=== PATIENT | female | born 1955 | race Caucasian/White ===

== ENCOUNTER → 2016-06-07 | Outpatient (CLI) | payer OTHER ==
[~2016-06-07] MED LIST: ALPRAZOLAM; DESYREL150 M1 PO; EFFEXOR PO; GABAPENTIN100 M1 PO; LORTAB 10/500 T1 TAB PO; MORGIDOX100 MG PO; NAPROSYN500 MG PO; NEURONTIN PO; NORCO 10-325 TA1 TAB PO; ORUDIS75 M1 PO; PRILOSEC40 MG PO; TRAZODONE HCL100 MG PO; TRAZODONE PO; XANAX0.5 MG PO; ZOLOFT; ZOLOFT PO; ZOLOFT50 MG PO; [UNRECOGNIZED DRUG - OTHER] PO
--- NOTE | ~2016-06-07 | CR63 ---
[facility] A Service of [facility] & [facility] RADIOLOGY TEXT RESULTS PATIENT: JOSÉ ANTONIO HUERTA LOCATION: [facility] : 57 UNIT #: [id number] AGE: [address]: Stephanie Jansen SEX: F ORDER DR: [id number] [address] [address] [id number] O MR#: [id number] Acc #: [id number] NAME: JOSÉ ANTONIO HUERTA : 1955 SEX: F STUDY DATE/TIME: 06/07/2016 9:47 UNIT: [facility] ROOM: STUDY DESCRIPTION: CR Chest 2 View Attending Physician: Stephanie Jansen A.P.R.N. Referring Physician: Stephanie Jansen A.P.R.N. Ordering Physician: Stephanie Jansen A.P.R.N. Primary Care Physician: Stephanie Jansen A.P.R.N. MEDICAL IMAGING REPORT This report is preliminary unless electronic signature is present. EXAM Chest PA and lateral 06/07/2016. COMPARISON Study of 01/26/2016. HISTORY Cough and congestion for 2 weeks. FINDINGS PA and lateral views are obtained. The cardiovascular configuration of the chest is normal and the lungs are clear. CONCLUSION 1. No active disease. Dictated by... Harpreet Mcghee M.D. THIS IS AN ELECTRONICALLY VERIFIED REPORT Harpreet Mcghee M.D. at 06/10/2016 7:20 AM TANNA/erich TD: 06/07/2016 20:25 JOB #: [id number] MEDICAL IMAGING REPORT Page 1 of 1
--- NOTE | ~2016-06-07 | CR242 ---
[facility] A Service of [facility] & [facility] & [facility] RADIOLOGY TEXT RESULTS PATIENT: JOSÉ ANTONIO HUERTA LOCATION: [facility] : 57 UNIT #: [id number] AGE: [address]: Stephanie Jansen SEX: F ORDER DR: [id number] [address] [address] [id number] O MR#: [id number] Acc #: [id number] NAME: JOSÉ ANTONIO HUERTA : 1955 SEX: F STUDY DATE/TIME: 06/07/2016 9:47 UNIT: [facility] ROOM: STUDY DESCRIPTION: CR Thoracic Spine 2 Views Attending Physician: Stephanie Jansen A.P.R.N. Referring Physician: Stephanie Jansen A.P.R.N. Ordering Physician: Stephanie Jansen A.P.R.N. Primary Care Physician: Stephanie Jansen A.P.R.N. MEDICAL IMAGING REPORT This report is preliminary unless electronic signature is present. EXAM Thoracic series 06/07/2016 INDICATIONS 61-year-old female with low back pain symptoms for at least 8 years. Degenerative disc disease. TECHNIQUE 2 views of the thoracic spine were performed. Correlation is made with chest x-ray 01/26/2016 FINDINGS Cervicothoracic junction not visualized or assessed. Remainder of the thoracic spine demonstrates no evidence of malalignment or acute or chronic fracture. There is mild degenerative disc disease in the mid thoracic levels. Mild lumbar levoscoliosis. Postop changes of cholecystectomy. IMPRESSION 1. Mild degenerative disc disease in the mid thoracic spine. Marginal osteophyte formation also present in the mid to lower thoracic levels to a mild degree. Otherwise negative Dictated by... Gonzalo Weathers M.D. THIS IS AN ELECTRONICALLY VERIFIED REPORT Gonzalo Weathers M.D. at 06/08/2016 10:38 AM GENEVA/lexis TD: 06/08/2016 04:44 JOB #: [id number] [facility] A Service of [facility] & [facility] & [facility] RADIOLOGY TEXT RESULTS PATIENT: JOSÉ ANTONIO HUERTA LOCATION: [facility] : 57 UNIT #: [id number] AGE: [address]: Stephanie Jansen SEX: F ORDER DR: MEDICAL IMAGING REPORT Page 1 of 1
--- NOTE | ~2016-06-07 | CR181 ---
[facility] A Service of [facility] & [facility] RADIOLOGY TEXT RESULTS PATIENT: JOSÉ ANTONIO HUERTA LOCATION: [facility] : 57 UNIT #: [id number] AGE: [address]: Stephanie Jansen SEX: F ORDER DR: [id number] [address] [address] [id number] O MR#: [id number] Acc #: [id number] NAME: JOSÉ ANTONIO HUERTA : 1955 SEX: F STUDY DATE/TIME: 06/07/2016 9:47 UNIT: [facility] ROOM: STUDY DESCRIPTION: CR Lumbar Spine 2 or 3 Views Attending Physician: Stephanie Jansen A.P.R.N. Referring Physician: Stephanie Jansen A.P.R.N. Ordering Physician: Stephanie Jansen A.P.R.N. Primary Care Physician: Stephanie Jansen A.P.R.N. MEDICAL IMAGING REPORT This report is preliminary unless electronic signature is present. EXAM Lumbar series 06/07/2016 INDICATIONS 61-year-old female with low back pain symptoms in the low back for at least 8 years. Degenerative disc disease. TECHNIQUE 2 views of the lumbar spine were performed. Comparison is made with abdomen and pelvis CT 05/16/2010 FINDINGS Postop changes of cholecystectomy are present. There is mild mid lumbar levoscoliosis. Vertebral body heights are maintained. There is minimal retrograde listhesis of L3 on L4 and L2 on L3 grade 1 in degree. There is degenerative disc disease at all lumbar levels with relative sparing at L1-2. There is spurring of L2, L3 and L4 and to a lesser extent L5. There is moderate facet arthropathy at L4-5 and L5-S1. IMPRESSION 1. Moderate degenerative change of the lumbar spine primarily related to degenerative disc disease and to a lesser extent facet arthropathy. There is vertebral body spurring as described. Mild levoscoliosis. Dictated by... Gonzalo Weathers M.D. THIS IS AN ELECTRONICALLY VERIFIED REPORT Gonzalo Weathers M.D. at 06/08/2016 10:38 AM GENEVA/lexis TD: 06/08/2016 04:25 [facility] A Service of [facility] & [facility] RADIOLOGY TEXT RESULTS PATIENT: JOSÉ ANTONIO HUERTA LOCATION: [facility] : 57 UNIT #: [id number] AGE: [address]: Stephanie Jansen SEX: F ORDER DR: ROMAN #: [id number] MEDICAL IMAGING REPORT Page 1 of 1
== END | disposition home or self-care (01) ==
LOC: SRAD 09:38
DX: M54.5 Low back pain (principal); R05 Cough; M47.816 Spondylosis without myelopathy or radiculopathy, lumbar region; M51.36 Other intervertebral disc degeneration, lumbar region; M41.9 Scoliosis, unspecified; M46.06 Spinal enthesopathy, lumbar region; M51.34 Other intervertebral disc degeneration, thoracic region; M25.78 Osteophyte, vertebrae
CPT/HCPCS: 71020; 72070; 72100

== ENCOUNTER → 2016-10-11 | Outpatient (CLI) | payer OTHER ==
--- NOTE | ~2016-10-11 | CR58 ---
[facility] A Service of [facility] RADIOLOGY TEXT RESULTS PATIENT: JOSÉ ANTONIO HUERTA LOCATION: [facility] : 57 UNIT #: [id number] AGE: [address]: Stephanie Jansen SEX: F ORDER DR: [id number] [place] [id number] O MR#: [id number] Acc #: [id number] NAME: JOSÉ ANTONIO HUERTA. : 1955 SEX: F STUDY DATE/TIME: 10/11/2016 10:52 UNIT: [facility] ROOM: STUDY DESCRIPTION: CR Cervical Spine 2 or 3 Views Attending Physician: Stephanie Jansen A.P.R.N. Referring Physician: Stephanie Jansen A.P.R.N. Ordering Physician: Stephanie Jansen A.P.R.N. Primary Care Physician: Stephanie Jansen A.P.R.N. MEDICAL IMAGING REPORT This report is preliminary unless electronic signature is present. EXAM Cervical spine series HISTORY Arm and neck pain started about a month ago. No injury. TECHNIQUE AP, lateral and odontoid views of the cervical spine reviewed. 4 films submitted. COMPARISON STUDIES No comparison. FINDINGS There is visualization of cervical vertebral bodies from C1 to top of T1. Sagittal alignment is normal. Prevertebral soft tissues are normal. There is mild loss of intervertebral disc height at C5-C6 but there is no acute fracture or bone destruction. IMPRESSION Plain film evidence of mild degenerative disc disease at C5-C6. If more information is needed and the patient is a candidate, findings best pursued with non-emergent MRI. Dictated by... Any French M.D. THIS IS AN ELECTRONICALLY VERIFIED REPORT Any French M.D. at 10/14/2016 1:56 PM SAC/pcl [facility] A Service [facility] RADIOLOGY TEXT RESULTS PATIENT: JOSÉ ANTONIO HUERTA LOCATION: [facility] : 57 UNIT #: [id number] AGE: [address]: Stephanie Jansen SEX: F ORDER DR: TD: 10/11/2016 22:39 JOB #: [id number] MEDICAL IMAGING REPORT Page 1 of 1
== END | disposition home or self-care (01) ==
LOC: SRAD 10:41
DX: M54.2 Cervicalgia (principal); M50.322 Other cervical disc degeneration at C5-C6 level
CPT/HCPCS: 72040